=== PATIENT | male | born 1970 | race African-American/Black ===

== ENCOUNTER 2023-07-31 18:35 | Emergency (ER) | payer MEDICAID ==
[~2023-07-31 18:35] MED LIST: CEPH500C2 MT
[2023-07-31 18:44] VITALS: PULSE 54; RESP 18
== END 2023-07-31 18:53 | disposition home or self-care (01) ==
LOC: ER 18:35
DX: Z48.02 Encounter for removal of sutures (principal)
CPT/HCPCS: 99281